=== PATIENT | male | born 1995 | race Caucasian/White ===

== ENCOUNTER 2024-03-04 11:07 | Emergency (ER) | payer BC, SELFPAY ==
[2024-03-04 11:21] VITALS: BP 133/80
[2024-03-04 11:24] LABS: Glucose - Point of Care 421 mg/dl (70-99)
[2024-03-04 11:40] LABS: % Basophils 0.7 % (0-2); % Eosinophils 2.3 % (0-6); % Immature Granulocytes 0.3 % (0-0.5); % Lymphocytes 21.7 % (20.5-51.1); % Monocytes 6.6 % (1.7-9.3); % Neutrophils 68.4 % (42.2-75.2); Absolute Basophils 0.1 10^3/uL (0-0.2); Absolute Eosinophils 0.2 10^3/uL (0-0.7); Absolute Lymphocytes 1.6 10^3/uL (1.2-3.4); Absolute Monocytes 0.5 10^3/uL (0.1-0.6); Hematocrit 43.4 % (39.0-52.0); Hemoglobin 15.4 g/dL (13.0-18.0); Mean Corp Hgb Conc. 35.5 g/dL (33.0-37.0); Mean Corpuscular Hgb 29.7 pg (27.0-31.0); Mean Corpuscular Volume 83.6 fL (80.0-94.0); Mean Platelet Volume 10.6 fL (7.4-10.4); Nucleated Red Blood Cells % 0 % (-); Platelet Count 236 10^3/uL (130-400); Red Blood Cell Count 5.19 10^6/uL (4.70-6.10); Red Cell Dist. Width 11.8 % (11.5-14.5); White Blood Cell Count 7.3 10^3/uL (4.8-10.8)
[2024-03-04 12:00] LABS: ALT (SGPT) 27 U/L (0-50); AST (SGOT) 23 U/L (17-59); Albumin 4.9 g/dl (3.5-5.0); Alkaline Phosphatase 147 U/L (38-126); Blood Urea Nitrogen 24 mg/dl (9-20); Calcium 9.6 mg/dl (8.4-10.2); Carbon Dioxide 28 mmol/L (22-30); Chloride 96 mmol/L (98-107); Glucose 383 mg/dl (70-99); Potassium 4.8 mmol/L (3.5-5.1); Sodium 130 mmol/L (135-145); Total Bilirubin 0.5 mg/dl (0.2-1.3); Total Protein 7.3 g/dl (6.3-8.2); eGFR > 60.00
[2024-03-04 12:08] LABS: B-Hydroxybutyrate 0.13 mmol/L (0.02-0.27)
[2024-03-04 12:59] VITALS: BMI 25.4
[2024-03-04] MEDS: NSS 1000 IV (13:05)
--- NOTE | 2024-03-04 13:22 | EDRN ---
Diabetic education currently at the pts bedside speaking with the pt and the pts family
--- NOTE | 2024-03-04 13:24 | ED.GENMED ---
History of Present Illness
General
Chief Complaint: Blood Sugar Problem
Source: patient
Exam Limitations: none
Time Seen by Provider: 03/04/24 12:43
Nursing documentation reviewed up to this point in time: agreed with
Travel History
Have you had any contact with someone who has COVID-19?: No
Do you have any symptoms of coronavirus? Fever > 100 degrees, chills, cough, shortness of breath, sore throat, loss of taste or smell, muscle aches, or headache?: No
History of Present Illness
History of Present Illness:
28-year-old male past medical history of ADHD anxiety bipolar disorder presenting to the emergency department today after he was found to have elevated blood sugar as an outpatient just prior to arrival. He was having routine labs. He had not had
routine lab for the past 5 years. He has noticed over the past week or so his head increased generalized fatigue increased thirst and increased urination has had some mild intermittent abdominal pain but denies any currently. Has any chest pain
shortness of breath vomiting.
Past History
Past History
ED Past Medical History: Asthma and Psychiatric (BAD/Order)
ED Past Surgical History: Other (Spermatocele of epididymis, acute prostatitis, discectomy, vasectomy)
Social History
Tobacco: Smoker
Alcohol: Occasional
Drug: Marijuana
Personal: Single
Living: with family
Employment: Employed
Family History
Family History: Other (Noncontributory)
Review of Systems
Review of Systems
Allergies reviewed?: Yes
All Other Systems: ROS reviewed and negative except as documented in HPI and ROS
Phy Exam
Physical Exam
Physical Exam:
GENERAL: Alert , in no apparent distress
EYE: pupils equal and reactive
NECK: Supple, no significant adenopathy.
ENT: o/p clr, mmm.
CARDIAC: Regular rate and rhythm .
LUNGS: Clear breath sounds bilaterally, no acute respiratory distress, no wheezes/rales/rhonchi
ABDOMEN: Soft, without focal tenderness, no r/g, no cvat
NEUROLOGICAL: Alert and oriented, no focal neuro deficits
SKIN: Warm and dry, skin intact.
MUSCULOSKELETAL: No edema, well perfused.
PSYCH: Normal and appropriate interaction.
Course
Orders/Labs/Results
Orders:
Orders
03/04/24 11:30
BHB [B-Hydroxybutyrate] Urgent
CBC/With Diff [Complete Blood Count/With Diff] Urgent
Comprehensive Metabolic Panel Urgent
03/04/24 12:48
0.9% Sodium Chloride 1000 ml [Nss] 1,000 ml IV BOLUS
03/04/24 13:56
Urinalysis Reflex To Culture Urgent
Date Specimen was Collected: 03/04/24
Time Specimen was Collected: 13:02
Abnormal Lab Results
03/04/24 03/04/24 03/04/24
11:23 11:30 13:56
MPV 10.6 H fL
(7.4-10.4)
Sodium 130 L mmol/L
(135-145)
Chloride 96 L mmol/L
(98-107)
BUN 24 H mg/dl
(9-20)
Creatinine 0.5 L mg/dL
(0.7-1.3)
Glucose 383 H mg/dl
(70-99)
Alkaline Phosphatase 147 H U/L
(38-126)
Urine Glucose 3+ A
(Negative)
POC Glucose 421 H mg/dl
(70-99)
03/04/24
14:10
MPV
Sodium
Chloride
BUN
Creatinine
Glucose
Alkaline Phosphatase
Urine Glucose
POC Glucose 245 H mg/dl
(70-99)
03/04/24 11:30
03/04/24 11:30
Vital Signs
Initial and Last Documented VS:
Initial Vital Signs
Temp Pulse Resp BP Pulse Ox
98.7 F 93 18 133/80 100
03/04/24 11:21 03/04/24 11:21 03/04/24 11:21 03/04/24 11:21 03/04/24 11:21
Last Documented Vital Signs
Temp Pulse Resp BP Pulse Ox
98.7 F 87 15 133/80 99
03/04/24 11:21 03/04/24 14:15 03/04/24 13:30 03/04/24 11:21 03/04/24 14:15
MDM/Problems Addressed
MDM/Problems Addressed:
28-year-old male presenting to the emergency department today with concerns of elevated sugar level as an outpatient. Patient has polydipsia and polyuria has been feeling fatigued over the past week or so. Labs here showing sugar level of 383.
BUN to creatinine ratio consistent with mild dehydration was given a liter of fluid. Sugar improving to the low 200s. Case discussed with patient's primary care doctor that I will follow him up tomorrow. Additionally had the welding setter
discussed with the patient for checking sugar at home and also had the pharmacist review the patient's medications to see if these potentially could be influencing the likelihood of developing diabetes and hyperglycemia. Otherwise she was stable
throughout ER stay. Started on metformin stable for discharge.
*Critical Care Note
Total Time (30-74mins, 75-104mins- exclusive of procedures): Not Applicable
ED Attending Note
-
Portions of this chart may have been created with voice recognition software.� Occasional wrong word or��sound alike� substitutions may have occurred due to the inherent limitations of voice recognition software.
Discharge Plan
Departure
Patient Disposition: Home (Routine Discharge)
Date of Disposition: 03/04/24
Time of Disposition: 14:34
Patient with high blood pressure during this ER visit?: No
Condition: Good
Covid-19: Not Applicable
Discharge Problem:
Acute hyperglycemia
Instructions: Type 2 Diabetes (DC)
Prescriptions:
New
metformin 500 mg tablet
500 mg PO DAILY 14 Days Qty: 14 0RF
No Action
caffeine 200 mg Tablet
200 mg PO DAILY
lithium carbonate 300 mg Capsule
600 mg PO BID
dextroamphetamine-amphetamine 20 mg tablet
20 mg PO TID@0800,12,16
ibuprofen 200 mg Tablet
800 mg PO QIDPRN PRN (Reason: abdominal pain)
cholecalciferol (vitamin D3) 125 mcg (5,000 unit) Tablet
500 mcg PO DAILY
Rexulti 3 mg Tablet
3 mg PO DAILY
Systane Ultra (PF) 0.4-0.3 % Drops
1 drp BOTH EYES DAILYPRN PRN (Reason: dry eyes)
L-Methylfolate
1 tab PO DAILY
Sleep Supplement
2 tab PO HS
Patient Comments:
03/04/2024, per pt., this supplement includes 6 mg of melatonin, 100 mg of gamma-aminobutyric acid, chamomile extract, lemon balm.
Kvng B12 Vitamin
1 tab PO DAILY
Kvng Stress Relief
2 cap PO DAILY
Patient Comments:
03/04/2024, Kvng Stress Relief Supplement.
magnesium
1 tab PO DAILY
Referrals:
Baudilio Barron MD [Family Provider] -
Activity Restrictions/Additional Instructions:
You came to the emergency department today with concerns of elevated sugar level. Here there is no signs of emergent complications. Please follow closely with your primary care doctor tomorrow. Please take metformin once daily in the meantime
until further adjustments are made.
Interventions
Interventions:
*Risk Screen - Suicide Last Done: 03/04/24 11:21
*General Assessment Last Done: 03/04/24 11:21
*Neglect/Abuse Screening Last Done: 03/04/24 11:21
ED- Fall Risk Assessment Last Done: 03/04/24 12:59
*ED COVID-19 Vaccine History Last Done: 03/04/24 12:59
ED- Neurological Assessment Last Done: 03/04/24 12:59
Discharge Date and Time
Print Language: CYMRAES
[2024-03-04 14:11] LABS: Glucose - Point of Care 245 mg/dl (70-99)
[2024-03-04 14:13] LABS: Urine Albumin Negative (Neg - Trace); Urine Bilirubin Negative (Negative); Urine Character Clear (Clear); Urine Color Yellow; Urine Glucose 3+ (Negative); Urine Ketone Negative (Negative); Urine Leukocyte Negative (Negative); Urine Nitrite Negative (Negative); Urine Occult Blood Negative (Negative); Urine Urobilinogen Negative (Neg - 1+); Urine pH 6.5 (5.0-9.0)
--- NOTE | 2024-03-04 15:13 | PN.DE ---
Diabetes Education
- -
Diabetes Education Consult
Met with Mr. Garrett and his family in the ED for glucose monitor instructions.
Current A1C 9.9%. Pt states he was asked to come to the ED by his PCP. He was recently Dx with DM, after going to his PCP for routine blood work due to having sx of increased generalized fatigue, increased thirst and increased urination with some
mild intermittent abdominal pain but denies any currently.
Discussed A1C and average blood sugar of 200, diabetes related short and senior living complications, life style modification and self management at home.
Provided with Contour Next EZ glucometer, instructions with good return demonstration, result 291 mg/dl before lunch.
Discussed testing pattern and expected results and information marked in the take home booklet. Discussed and reviewed importance of reducing CHO intake, being active and checking BS to assess food/medication effect on his BS. Encourage physical
activity and benefit of losing weight.
Will need RX for test strips and lancets for the Contour Next EZ, testing 2x/day at discharge.
Discussed plan of care including medications for management at home with pt and family. Pt was instructed to f/u with his PCP for OP w/u for T1DM vs T2DM.
Updates given to Pt's nurse.
== END 2024-03-04 14:38 | disposition home or self-care (01) ==
LOC: EMR 11:07
PROVIDERS: Physician Assistant; EMERGENCY PHYSICIAN Emergency Medicine; FAMILY PHYSICIAN Family Medicine
DX: E11.65 Type 2 diabetes mellitus with hyperglycemia (principal); F17.200 Nicotine dependence, unspecified, uncomplicated; E86.0 Dehydration
CPT/HCPCS: 99284; 96360; 80053; 81003; 82010; 82962; 85025